=== PATIENT | male | born 1995 | race Caucasian/White ===

== ENCOUNTER 2019-03-20 19:07 | Emergency (ER) | payer SELFPAY ==
[2019-03-20 21:35] VITALS: BP 118/76
== END 2019-03-20 21:35 | disposition home or self-care (01) ==
LOC: ED 19:07
DX: S09.90XA Unspecified injury of head, initial encounter (principal); W22.8XXA Striking against or struck by other objects, initial encounter; Y93.89 Activity, other specified; Y92.89 Other specified places as the place of occurrence of the external cause; Y99.8 Other external cause status